=== PATIENT | female | born 1955 | race Caucasian/White ===

== ENCOUNTER 2018-08-17 07:48 | Outpatient (CLI) | payer OTHER | END 2018-08-17 08:02 | disposition home or self-care (01) | LOC: LAB 07:48 | DX: E88.89 Other specified metabolic disorders (principal); M81.8 Other osteoporosis without current pathological fracture; E83.42 Hypomagnesemia; E56.1 Deficiency of vitamin K; E03.8 Other specified hypothyroidism ==